=== PATIENT | female | born 1975 | race American Indian/Alaskan Native ===

== ENCOUNTER 2016-10-06 12:49 | Emergency (ER) | payer OTHER, BC ==
[2016-10-06 13:54] VITALS: BP 169/93
[2016-10-06] MEDS: TORADOL IM ONE (15:11)
--- NOTE | 2016-10-06 15:38 | XRay Report ---
LUMBOSACRAL SPINE, 3 VIEWS: History: Back pain Findings: The vertebral bodies, disk spaces and posterior elements are intact. No compression deformity or malalignment. The SI joints are symmetric and unremarkable. Impression: 1. No evidence for acute injury to the lumbar spine.
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
== END 2016-10-06 15:55 | disposition home or self-care (01) ==
LOC: ED 12:49
DX: S16.1XXA Strain of muscle, fascia and tendon at neck level, initial encounter (principal); S39.012A Strain of muscle, fascia and tendon of lower back, initial encounter; G43.909 Migraine, unspecified, not intractable, without status migrainosus; M79.1 Myalgia; Z88.0 Allergy status to penicillin; Z88.6 Allergy status to analgesic agent; V89.2XXA Person injured in unspecified motor-vehicle accident, traffic, initial encounter; Y93.9 Activity, unspecified; Y92.410 Unspecified street and highway as the place of occurrence of the external cause; Y99.9 Unspecified external cause status
CPT/HCPCS: 72100; 96372; 99283; J1885

== ENCOUNTER 2020-12-09 16:51 | Emergency (ER) | payer BC, OTHER ==
[2020-12-09 17:18] VITALS: BP 149/77
[2020-12-09] MEDS ORDERED: KETOROLAC 10 MG TAB PO ONE (20:37)
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
--- NOTE | 2020-12-09 22:33 | XRay Report ---
BILATERAL RIBS 3 VIEWS INDICATION / CLINICAL INFORMATION: MAIN. Rib pain COMPARISON: Thoracic spine radiographs 12/09/2020. FINDINGS: RIBS: No acute, displaced fracture or other acute abnormality. LUNGS: No acute findings. No pneumothorax. ACDF the lower cervical spine stable since prior thoracic spine radiographs. S-shaped scoliosis of th e thoracolumbar spine is noted. Surgical mesh material noted of the upper abdomen. Signer Name: Francisco Javier Mares MD Signed: 12/09/2020 10:29 PM Workstation Name: [id number]
== END 2020-12-10 01:00 | disposition home or self-care (01) ==
LOC: ED 16:51
DX: S06.0X9A Concussion with loss of consciousness of unspecified duration, initial encounter (principal); S13.9XXA Sprain of joints and ligaments of unspecified parts of neck, initial encounter; S63.502A Unspecified sprain of left wrist, initial encounter; S23.3XXA Sprain of ligaments of thoracic spine, initial encounter; Z98.890 Other specified postprocedural states; Z79.1 Long term (current) use of non-steroidal anti-inflammatories (NSAID); Z79.899 Other long term (current) drug therapy; Z88.0 Allergy status to penicillin; Z88.8 Allergy status to other drugs, medicaments and biological substances; V49.49XA Driver injured in collision with other motor vehicles in traffic accident, initial encounter; W22.10XA Striking against or struck by unspecified automobile airbag, initial encounter; Y93.89 Activity, other specified; Y92.410 Unspecified street and highway as the place of occurrence of the external cause; Y99.8 Other external cause status
CPT/HCPCS: 70450; 71111; 72070; 72125